=== PATIENT | female | born 1990 | race Caucasian/White ===

== ENCOUNTER 2021-01-03 21:42 | Emergency (ER) | payer OTHER ==
[2021-01-04] MEDS ORDERED: PERCOCET 5/325 T1 EA PO (01:30)
[2021-01-04] MEDS ORDERED: KEFLEX750 MG PO (01:30)
== END 2021-01-04 01:48 | disposition home or self-care (01) ==
LOC: ER1 21:42
DX: S02.32XA Fracture of orbital floor, left side, initial encounter for closed fracture (principal); Z23 Encounter for immunization; V86.59XA Driver of other special all-terrain or other off-road motor vehicle injured in nontraffic accident, initial encounter; Y92.410 Unspecified street and highway as the place of occurrence of the external cause
CPT/HCPCS: 70450; 70486; 90471; 90715; 96372; 96374; 96375; 99283; J2270; J2405; J2550